=== PATIENT | male | born 1955 ===

== ENCOUNTER 2020-02-20 17:54 | Inpatient (IN) | payer OTHER ==
[~2020-02-20] VITALS: Ht 177.8 cm; Wt 81.6 kg
[2020-02-20] MEDS ORDERED: SYNTHROID50 MCG (19:39)
[2020-02-20] MEDS ORDERED: METFORMIN HCL500 M3 (19:39)
[2020-02-24] MEDS ORDERED: OMEPRAZOLE20 MG PO (13:35)
[2020-02-24] MEDS ORDERED: PERCOCET 5-3251 EACH PO (13:35)
== END 2020-02-24 15:05 | disposition home or self-care (01) | DRG 419 ==
LOC: ER 17:54 → SURH 02-21 07:45
PROVIDERS: ADMIT Surgery; ATTEND Surgery
PROC: 0FT44ZZ Resection of Gallbladder, Percutaneous Endoscopic Approach (ICD-10-PCS; principal; 2020-02-21 08:00)
DX: K80.00 Calculus of gallbladder with acute cholecystitis without obstruction (principal); E03.9 Hypothyroidism, unspecified; E11.9 Type 2 diabetes mellitus without complications; Z20.828 Contact with and (suspected) exposure to other viral communicable diseases